=== PATIENT | female | born 1950 | race Caucasian/White ===

== ENCOUNTER 2018-11-18 16:06 | Emergency (ER) | payer MEDICARE ==
--- NOTE | 2018-11-18 16:47 | ED.PDOC ---
History of Present Illness - General Chief Complaint: Cardiac Respiratory Arrest Stated Complaint: found unresponsive at home Time Seen by Provider: 11/18/18 16:39 Source: Vital Signs reviewed, EMS notes reviewed, family Exam Limitations: clinical condition - History of Present Illness Initial Comments: the patient is a 68-year-old female brought in by EMS in CPR. The patient was found collapsed by her approximately 30 minutes prior to arrival here. He apparently did some form of CPR. The patient was intubated by EMS and was initially found to be in essentially PEA almost asystole. After rounds of epinephrine she did have what looked like an organized rhythm on the monitor but no palpable pulses. No adequate pulse oximetry readings were detectable. No blood pressure, pulse even with good CPR was detectable. The patient was not neurologically responsive to EMS in any way. Good breath sounds were present bilaterally by auscultation upon her arrival here. The patient has shown no neurological response here. I'm unable to palpate any definitive carotid, femoral radial or dorsalis pedis pulses with CPR in progress or when CPR was stopped. 2 scans with the ultrasound showed no organized cardiac activity. After approximately 20 minutes here in cpr, the discussion was had with family and CPR was stopped according to their wishes. No palpable pulses. No spontaneous respirations. No evidence of any central neurological activity. No dopplerable pulses. No gag reflex. The patient was pronounced at 1630. The patient had received multiple doses of epinephrine here along with a dose of bicarbonate. EMS had gotten a glucose of 90 prior to arrival here. Other information from family states that the patient had not been feeling well for the better part of the last week. It is possible that the patient was down for up to 25 or 30 minutes prior to finding her. the patient was obviously in cardiac arrest upon arrival here however I'm uncertain of what triggered that. We were never able to get an improvement in her pulse oximetry or even palpable pulses with chest compressions. No measurable blood pressures were ab le to be obtained. I personally auscultated bilateral lung suarez 4 times during the resuscitation efforts confirming good air movement each time into the lung suarez. Timing/Duration: other - at least 30 or 40 minutes Severity: severe Allergies/Adverse Reactions: Allergies NO KNOWN ALLERGY Allergy (Unverified 01/24/13 10:18) Home Medications: Ambulatory Orders Unobtainable 11/18/18 Review of Systems - Review of Systems Review of Systems: 11/18/18 16:47 patient obviously unable to give review of systems. Family Medical History - Family History Mother Family History: Unknown Living Status: Unknown Physical Exam - Physical Exam General Appearance: Other - intubated and unresponsive. Pale. Eye Exam: bilateral other - nresponsive Ears, Nose, Throat: normal pharynx - intubated Neck: full range of motion Respiratory: other - no respiratory drive. Breath sounds are heard bilaterally. Cardiovascular/Chest: no edema, other - no spontaneous cardiac activity could be heard. Peripheral Pulses: radial,right: 0, radial,left: 0, femoral,right: 0, femoral,left: 0, dorsalis pedis,right: 0, dorsalis pedis,left: 0 Gastrointestinal/Abdominal: soft, other - no definite palpable mass. Rectal Exam: deferred Extremity: no pedal edema, other - poor capillary refill Neurologic: other - unresponsive. Skin Exam: pallor Comments: Vital Signs - 24 hr 11/18/18 11/18/18 11/18/18 16:07 16:37 16:46 Temperature 0 F L Pulse Rate [ 0 L 0 L Apical] Respiratory 0 L 0 L 0 L Rate Blood Pressure 0/0 [Left Arm] O2 Sat by Pulse 0 L Oximetry Progress - Progress Progress: 11/18/18 16:49 see history of present illness. 11/18/18 17:47 laboratory work returned after the patient had already . She was significantly more anemic than she had been on her previous blood draw here several years ago. Additionally there was a rise in troponin which was no surprise. She also had significant hypokalemia. - Results/Orders Results/Orders: Laboratory Results - last 24 hr 11/18/18 11/18/18 11/18/18 16:41 16:41 16:41 WBC 8.2 RBC 3.96 L Hgb 7.8 L* Hct 28.9 L MCV 73.0 L MCH 19.6 L MCHC 26.9 L RDW 20.1 H Plt Count 362 MPV 8.7 Absolute Neuts (auto) 3.30 Absolute Lymphs (auto) 4.00 H Absolute Monos (auto) 0.70 Absolute Eos (auto) 0.10 Absolute Basos (auto) 0.10 Neutrophils % 40.3 L Lymphocytes % 49.3 Monocytes % 9.0 Eosinophils % 0.7 L Basophils % 0.7 Sodium 143 Potassium 2.5 L Chloride 92 L Carbon Dioxide 20 L Anion Gap 33.5 H BUN 7 Creatinine 0.86 BUN/Creatinine Ratio 8.1 L Random Glucose 177 H Serum Osmolality 287.3 Calcium 7.8 L Creatine Kinase 370 H* Troponin I 0.54 H* Departure - Departure Clinical Impression: Cardiac arrest Disposition: Departure Forms: ED Discharge - Pt. Copy, Patient Portal Self Enrollment Referrals: Koko Mantilla III, MD [Primary Care Provider] - 1-2 Weeks Home Medications: Ambulatory Orders Unobtainable 11/18/18
[2018-11-18 17:13] VITALS: BP 0/0; TEMP 0; O2SAT 0
== END 2018-11-18 16:30 | disposition expired ==
LOC: ER 16:06
DX: I46.9 Cardiac arrest, cause unspecified (principal); D64.9 Anemia, unspecified; E87.6 Hypokalemia